=== PATIENT | male | born 1990 | race Caucasian/White ===

== ENCOUNTER 2024-06-24 16:52 | Emergency (ER) | payer SELFPAY ==
[2024-06-24] MEDS: Lidocaine 4% Patch TOP SCH (17:14)
[2024-06-24] MEDS: Ketorolac 60 MG/2 ML SDV IM ONE (17:14)
[2024-06-24] MEDS: Orphenadrine 60 MG/2 ML Inj IM ONE (17:14)
== END 2024-06-24 17:38 | disposition home or self-care (01) ==
LOC: MW.ED 16:52
DX: M54.41 Lumbago with sciatica, right side (principal); Z79.51 Long term (current) use of inhaled steroids; Z79.899 Other long term (current) drug therapy; Z75.8 Other problems related to medical facilities and other health care
CPT/HCPCS: 96372; 99283; A9270; J1885; J2360